=== PATIENT | female | born 1990 ===

== ENCOUNTER 2019-09-23 04:38 | Emergency (ER) | payer OTHER ==
[~2019-09-23] VITALS: Ht 162.6 cm; Wt 147.4 kg
[~2019-09-23 04:38] MED LIST: BACTROBAN OINT22 GM TP; DEPO-PROVERA; SEPTRA DS TABLE1 TAB PO
[2019-09-23] MEDS ORDERED: FIORICET (04:57)
== END 2019-09-23 09:41 | disposition home or self-care (01) ==
LOC: ER 04:38
DX: G43.909 Migraine, unspecified, not intractable, without status migrainosus (principal)

== ENCOUNTER 2022-07-17 05:07 | Emergency (ER) | payer OTHER ==
[~2022-07-17] VITALS: Ht 162.6 cm; Wt 181.4 kg
[~2022-07-17 05:07] MED LIST changes: +FIORICET
[2022-07-17] MEDS ORDERED: KETO10TA2 PO (08:43)
== END 2022-07-17 09:04 | disposition home or self-care (01) ==
LOC: ER 05:07
DX: M25.561 Pain in right knee (principal); M17.11 Unilateral primary osteoarthritis, right knee

== ENCOUNTER 2022-10-09 16:24 | Emergency (ER) | payer OTHER ==
[~2022-10-09] VITALS: Ht 160 cm; Wt 188.2 kg
[~2022-10-09 16:24] MED LIST changes: +KETO10TA2 PO
[2022-10-09] MEDS ORDERED: BUTALBIT-ACETA1 EACH PO (20:14)
== END 2022-10-09 21:26 | disposition home or self-care (01) ==
LOC: ER 16:24
DX: R11.0 Nausea (principal); G43.809 Other migraine, not intractable, without status migrainosus; G44.89 Other headache syndrome; R11.10 Vomiting, unspecified

== ENCOUNTER 2023-02-18 11:39 | Emergency (ER) | payer OTHER ==
[~2023-02-18] VITALS: Ht 162.6 cm; Wt 190.5 kg
[~2023-02-18 11:39] MED LIST changes: +BUTALBIT-ACETA1 EACH PO
== END 2023-02-18 21:53 | disposition home or self-care (01) ==
LOC: ER 11:39
DX: J06.9 Acute upper respiratory infection, unspecified (principal); Z20.822 Contact with and (suspected) exposure to COVID-19